=== PATIENT | female | born 1940 | race Caucasian/White ===

== ENCOUNTER 2016-08-25 13:19 | Inpatient (IN) | payer MEDICARE, BC ==
[~2016-08-25] VITALS: Ht 165.1 cm; Wt 81.0 kg
[~2016-08-25 13:19] MED LIST: ALEVE 220MG220 MG PO; ASPIRIN 81M81 MG/TA2 PO; CELEBREX 200MG200 MG PO; CLEOCIN HCL300 MG PO; COLACE 100100 MG/CAP PO; CRANBERRY FRUI405 MG PO; CYMBALTA 30MG30 MG PO; DIFLUCAN 100MG100 MG PO; DIFLUCAN200 MG PO; DOXYCYCLINE 10100 MG PO; FLEXERIL 1010 MG/TAB PO; HIPREX PO; K-TAB20 PO; LASIX 20MG TABL20 MG PO; LIORESAL 1010 MG/TAB PO; LIORESAL20 MG PO; LOPRESSOR 225 MG/TAB PO; NAPROSYN 2250 MG/TAB PO; NEURONTIN300 MG/CAP PO; NORCO 325 MG-51 TAB PO; OMNICEF 300MG300 MG PO; PROTONIX 40MG T40 MG PO; REQUIP0.25 MG PO; ROXICODONE 55 MG/TAB PO; TYLENOL 325MG325 MG PO; TYLENOL SU650 MG/SUP RC; UNKNOWN ABX; VITAMIN D32000 I1 PO; ZOFRAN ODT4 MG PO; [UNRECOGNIZED DRUG - OTHER] PO
[2016-08-25] MEDS ORDERED: BACTRIM DS 8001 TAB PO (13:25)
[2016-08-25] MEDS ORDERED: LIORESAL I500 MCG/ML (13:26)
[2016-08-25 14:12] LABS: BASO # 0.1 (0.0-0.2); BASO % 0.8 % (0.0-2.0); EOS # 0.1 (0.0-0.7); EOS % 1.3 % (0-4.0); GRAN # 4.9 (1.4-6.5); GRAN % 61.7 % (42.2-75.2); HEMATOCRIT 41.1 % (37.0-47.0); HEMOGLOBIN 13.3 g/dl (12.5-16.0); LYMPH # 2.4 (1.2-3.4); MEAN CELL VOLUME 94 fl (80.0-100.0); MEAN CORPUSCULAR HEMOGLOBIN 30 pg (27.0-31.0); MEAN CORPUSCULAR HGB CONC 32 g/dl (33.0-37.0); MEAN PLATELET VOLUME 10.2 fl (7.4-10.4); MONO # 0.4 (0.1-0.6); MONO % 4.9 % (1.7-9.3); PLATELET COUNT 291 K/mm3 (130-400); RED BLOOD COUNT 4.38 M/mm3 (4.10-5.30); WHITE BLOOD COUNT 7.9 K/mm3 (4.8-10.8)
[2016-08-25 14:18] LABS: ADJUSTED CALCIUM 8.6 mg/dL (8.4-10.2); BILIRUBIN,TOTAL 0.6 mg/dL (0.0-1.0); CALCIUM 8.6 mg/dL (8.4-10.2); CREATININE, serum 0.79 mg/dL (0.52-1.25); POTASSIUM 4.4 mmol/L (3.4-5.0); TOTAL PROTEIN 7.4 gm/dL (6.4-8.2)
[2016-08-25 16:52] VITALS: BP 137/62; PULSE 68; TEMP 97.9
[2016-08-25 19:51] VITALS: BP 132/65; PULSE 67
[2016-08-25 22:58] VITALS: BP 118/59; PULSE 70; TEMP 98.6
[2016-08-26 03:30] VITALS: BP 110/53; PULSE 70; TEMP 97.8
[2016-08-26 07:19] LABS: BASO # 0.1 (0.0-0.2); BASO % 0.8 % (0.0-2.0); EOS # 0.1 (0.0-0.7); EOS % 2.1 % (0-4.0); GRAN # 3.4 (1.4-6.5); GRAN % 54.8 % (42.2-75.2); HEMATOCRIT 37.8 % (37.0-47.0); HEMOGLOBIN 12.2 g/dl (12.5-16.0); LYMPH # 2.2 (1.2-3.4); LYMPH % 35.2 % (20.0-51.0); MEAN CELL VOLUME 95 fl (80.0-100.0); MEAN CORPUSCULAR HEMOGLOBIN 31 pg (27.0-31.0); MEAN CORPUSCULAR HGB CONC 32 g/dl (33.0-37.0); MEAN PLATELET VOLUME 10.5 fl (7.4-10.4); MONO # 0.4 (0.1-0.6); MONO % 6.6 % (1.7-9.3); PLATELET COUNT 271 K/mm3 (130-400); RED BLOOD COUNT 3.97 M/mm3 (4.10-5.30); REDCELL DISTRIBUTION WIDTH-CV 14.3 % (11.5-14.5); WHITE BLOOD COUNT 6.2 K/mm3 (4.8-10.8)
[2016-08-26 07:28] LABS: CALCIUM 7.7 mg/dL (8.4-10.2); CREATININE, serum 0.86 mg/dL (0.52-1.25); POTASSIUM 4.5 mmol/L (3.4-5.0)
[2016-08-26 07:46] VITALS: BP 123/57; PULSE 64; TEMP 97.5
[2016-08-26 11:36] VITALS: BP 131/64; PULSE 67; TEMP 97.4
[2016-08-26 15:13] VITALS: BP 127/65; PULSE 63; TEMP 97.4
[2016-08-26 20:11] VITALS: BP 115/50; PULSE 61; TEMP 98.5
[2016-08-26 23:26] VITALS: BP 120/54; PULSE 60; TEMP 97.8
[2016-08-27 07:57] VITALS: BP 128/58; PULSE 74; TEMP 97.4
[2016-08-27] MEDS ORDERED: ULTRAM 50MG TAB50 MG PO (10:17)
[2016-08-27] MEDS ORDERED: DOXYCYCLINE 10100 MG PO (10:17)
[2016-08-27 11:35] VITALS: BP 116/58; PULSE 78; TEMP 97.4
[2016-08-27 15:51] VITALS: BP 129/61; PULSE 68; TEMP 97.4
[2016-08-27 19:41] VITALS: BP 118/59; PULSE 71; TEMP 97.9
[2016-08-28 00:02] VITALS: BP 112/54; PULSE 73; TEMP 98
[2016-08-28 03:21] VITALS: BP 124/56; PULSE 67; TEMP 97.5
[2016-08-28 08:01] VITALS: BP 120/64; PULSE 67; TEMP 97.1
[2016-08-28] MEDS ORDERED: BACTRIM DS 8001 TAB PO (11:39)
[2016-08-28 12:18] VITALS: BP 158/108; PULSE 90; TEMP 98.3
== END 2016-08-28 14:25 | disposition home or self-care (01) | DRG 603 ==
LOC: COL.ER 13:19 → MEDICAL 16:11
PROVIDERS: Emergency Medicine; Family Medicine
DX: L03.115 Cellulitis of right lower limb (principal); G82.20 Paraplegia, unspecified; K21.9 Gastro-esophageal reflux disease without esophagitis; G25.81 Restless legs syndrome; T14.8 Other injury of unspecified body region; B95.62 Methicillin resistant Staphylococcus aureus infection as the cause of diseases classified elsewhere
CPT/HCPCS: OP; 99231-AI; 99232-AI; 99239; G0378; J1650; J2543; J3370; J7050

== ENCOUNTER 2016-10-07 20:30 | Emergency (ER) | payer MEDICARE, BC ==
[~2016-10-07] VITALS: Ht 165.1 cm; Wt 79.5 kg
[~2016-10-07 20:30] MED LIST changes: +BACTRIM DS 8001 TAB PO; +LIORESAL I500 MCG/ML; +ULTRAM 50MG TAB50 MG PO
[2016-10-07 20:32] VITALS: BP 145/70; TEMP 97.7
[2016-10-07] MEDS ORDERED: DITROPAN 5MG TAB5 MG (20:57)
[2016-10-07] MEDS ORDERED: SMZ/TMPDS PO (20:57)
[2016-10-07 21:17] LABS: BASO % 0.3 % (0.0-2.0); EOS % 0.6 % (0-4.0); GRAN # 5.2 (1.4-6.5); GRAN % 77.4 % (42.2-75.2); LYMPH # 1.1 (1.2-3.4); LYMPH % 16.7 % (20.0-51.0); MEAN CELL VOLUME 93 fl (80.0-100.0); MEAN CORPUSCULAR HGB CONC 33 g/dl (33.0-37.0); MEAN PLATELET VOLUME 9.5 fl (7.4-10.4); MONO # 0.3 (0.1-0.6); MONO % 4.4 % (1.7-9.3); PLATELET COUNT 214 K/mm3 (130-400); RED BLOOD COUNT 3.82 M/mm3 (4.10-5.30); REDCELL DISTRIBUTION WIDTH-CV 14.5 % (11.5-14.5); WHITE BLOOD COUNT 6.8 K/mm3 (4.8-10.8)
[2016-10-07 21:25] LABS: HEMATOCRIT 35.6 % (37.0-47.0); HEMOGLOBIN 11.8 g/dl (12.5-16.0); MEAN CORPUSCULAR HEMOGLOBIN 31 pg (27.0-31.0)
[2016-10-07 21:35] LABS: PH 7 (5-8); SQUAMOUS EPITHELIAL 0-2 /hpf; URINE APPEARANCE Clear; URINE BACTERIA None Seen /hpf; URINE BILIRUBIN Negative (NEGATIVE); URINE BLOOD Negative (NEGATIVE); URINE COLOR Yellow; URINE GLUCOSE Negative (NEGATIVE); URINE KETONE Negative (NEGATIVE); URINE UROBILINOGEN Negative (NEGATIVE)
[2016-10-07 21:47] LABS: ADJUSTED CALCIUM 8.9 mg/dL (8.4-10.2); ALANINE AMINOTRANSFERASE 42 U/L (9-52); ALBUMIN 3.5 gm/dL (3.5-5.0); ALKALINE PHOSPHATASE 58 U/L (50-136); ANION GAP 9 mmol/L (7-16); BILIRUBIN,TOTAL 0.4 mg/dL (0.0-1.0); BLOOD UREA NITROGEN 16 mg/dL (7-17); CALCIUM 8.5 mg/dL (8.4-10.2); CARBON DIOXIDE 24 mmol/L (22-30); CHLORIDE 102 mmol/L (98-107); GLUCOSE 127 mg/dL (74-106); LIPASE 56 U/L (23-300); POTASSIUM 4.2 mmol/L (3.4-5.0); SODIUM 136 mmol/L (137-145); TOTAL PROTEIN 6.2 gm/dL (6.4-8.2)
[2016-10-07 22:06] LABS: C-REACTIVE PROTEIN < 0.5 mg/dL (0.0-0.9); TROPONIN-I < 0.012 ng/mL (0.000-0.034)
[2016-10-07] MEDS ORDERED: ZOFRAN 4MG T4 MG/TAB PO (23:24)
[2016-10-07 23:35] VITALS: PULSE 64
== END 2016-10-07 23:35 | disposition home or self-care (01) ==
LOC: COL.ER 20:30
PROVIDERS: Emergency Medicine
DX: E86.0 Dehydration (principal); I48.91 Unspecified atrial fibrillation; Z90.49 Acquired absence of other specified parts of digestive tract; Z98.890 Other specified postprocedural states; Z79.82 Long term (current) use of aspirin
CPT/HCPCS: J2405; J7030

== ENCOUNTER 2016-10-09 01:54 | Observation (INO) | payer MEDICARE, BC ==
[~2016-10-09] VITALS: Ht 165.1 cm; Wt 94.4 kg
[~2016-10-09 01:54] MED LIST changes: +DITROPAN 5MG TAB5 MG; +SMZ/TMPDS PO; +ZOFRAN 4MG T4 MG/TAB PO
[2016-10-09 02:38] LABS: BASO % 0.3 % (0.0-2.0); EOS # 0.1 (0.0-0.7); EOS % 0.6 % (0-4.0); LYMPH # 1.7 (1.2-3.4); LYMPH % 18.1 % (20.0-51.0); MEAN CELL VOLUME 94 fl (80.0-100.0); MEAN CORPUSCULAR HGB CONC 33 g/dl (33.0-37.0); MEAN PLATELET VOLUME 9.6 fl (7.4-10.4); MONO # 0.4 (0.1-0.6); MONO % 4.2 % (1.7-9.3); PLATELET COUNT 221 K/mm3 (130-400); RED BLOOD COUNT 3.81 M/mm3 (4.10-5.30); REDCELL DISTRIBUTION WIDTH-CV 14.7 % (11.5-14.5); WHITE BLOOD COUNT 9.3 K/mm3 (4.8-10.8)
[2016-10-09 02:40] LABS: HEMATOCRIT 35.9 % (37.0-47.0); HEMOGLOBIN 11.9 g/dl (12.5-16.0); MEAN CORPUSCULAR HEMOGLOBIN 31 pg (27.0-31.0)
[2016-10-09 02:50] LABS: ALANINE AMINOTRANSFERASE 38 U/L (9-52); ALBUMIN 3.8 gm/dL (3.5-5.0); ALKALINE PHOSPHATASE 67 U/L (50-136); ANION GAP 9 mmol/L (7-16); BILIRUBIN,TOTAL 0.4 mg/dL (0.0-1.0); BLOOD UREA NITROGEN 16 mg/dL (7-17); CALCIUM 8.8 mg/dL (8.4-10.2); CARBON DIOXIDE 23 mmol/L (22-30); CHLORIDE 104 mmol/L (98-107); CREATININE, serum 0.88 mg/dL (0.52-1.25); GLUCOSE 102 mg/dL (74-106); LIPASE 102 U/L (23-300); SODIUM 136 mmol/L (137-145); TOTAL PROTEIN 6.5 gm/dL (6.4-8.2)
[2016-10-09 02:52] LABS: C-REACTIVE PROTEIN < 0.5 mg/dL (0.0-0.9)
[2016-10-09 03:04] LABS: TROPONIN-I < 0.012 ng/mL (0.000-0.034)
[2016-10-09] MEDS ORDERED: LIORESAL I500 MCG/ML (03:31)
[2016-10-09 03:33] LABS: PH 7 (5-8); SQUAMOUS EPITHELIAL 0-2 /hpf; URINE APPEARANCE Clear; URINE BACTERIA None Seen /hpf; URINE BILIRUBIN Negative (NEGATIVE); URINE BLOOD Negative (NEGATIVE); URINE COLOR Straw; URINE GLUCOSE Negative (NEGATIVE); URINE KETONE Negative (NEGATIVE); URINE RBC 0-2 /hpf; URINE UROBILINOGEN Negative (NEGATIVE); URINE WBC 0-2 /hpf
[2016-10-09 06:24] VITALS: BP 144/72; PULSE 50; TEMP 98.6
[2016-10-09 11:15] VITALS: BP 123/52; PULSE 61; TEMP 98.1
[2016-10-09 15:13] VITALS: BP 128/59; PULSE 60; TEMP 97.8
[2016-10-09 20:46] VITALS: BP 116/55; PULSE 76; TEMP 98.7
[2016-10-10] VITALS (8 sets, daily range): BP systolic 102–131; BP diastolic 50–82; PULSE 65–92; TEMP 98–98.4
[2016-10-10 07:17] LABS: BASO % 0.4 % (0.0-2.0); EOS # 0.1 (0.0-0.7); EOS % 0.6 % (0-4.0); GRAN # 5.6 (1.4-6.5); GRAN % 69.3 % (42.2-75.2); LYMPH # 1.9 (1.2-3.4); LYMPH % 23.9 % (20.0-51.0); MEAN CELL VOLUME 97 fl (80.0-100.0); MEAN CORPUSCULAR HGB CONC 32 g/dl (33.0-37.0); MEAN PLATELET VOLUME 9.6 fl (7.4-10.4); MONO # 0.4 (0.1-0.6); MONO % 5.3 % (1.7-9.3); PLATELET COUNT 206 K/mm3 (130-400); REDCELL DISTRIBUTION WIDTH-CV 15.1 % (11.5-14.5); WHITE BLOOD COUNT 8.1 K/mm3 (4.8-10.8)
[2016-10-10 07:21] LABS: HEMATOCRIT 34.9 % (37.0-47.0); HEMOGLOBIN 11.2 g/dl (12.5-16.0); MEAN CORPUSCULAR HEMOGLOBIN 31 pg (27.0-31.0)
[2016-10-10 07:39] LABS: CALCIUM 7.7 mg/dL (8.4-10.2); CREATININE, serum 0.78 mg/dL (0.52-1.25); POTASSIUM 4.2 mmol/L (3.4-5.0)
[2016-10-10] MEDS ORDERED: PRIL40 PO (13:00)
== END 2016-10-10 16:15 | disposition home health service (06) ==
LOC: COL.ER 01:54 → MEDICAL 04:47
PROVIDERS: Emergency Medicine; Nurse Practitioner Family
DX: K29.30 Chronic superficial gastritis without bleeding (principal); K25.9 Gastric ulcer, unspecified as acute or chronic, without hemorrhage or perforation; D64.9 Anemia, unspecified; Z86.14 Personal history of Methicillin resistant Staphylococcus aureus infection; K21.9 Gastro-esophageal reflux disease without esophagitis; G25.81 Restless legs syndrome; N31.9 Neuromuscular dysfunction of bladder, unspecified; Z87.440 Personal history of urinary (tract) infections; R35.0 Frequency of micturition; Z66 Do not resuscitate; G89.29 Other chronic pain; M54.9 Dorsalgia, unspecified; Z97.8 Presence of other specified devices; K29.60 Other gastritis without bleeding
CPT/HCPCS: C9113; G0378; J2250; J2405; J2550; J3010; J7030; J7040; Q9967

== ENCOUNTER → 2017-03-05 | Outpatient (CLI) | payer MEDICARE, BC ==
[~2017-03-05] MED LIST changes: +PRIL40 PO
== END ==
LOC: ZCOL.LAB 16:16
DX: Z01.812 Encounter for preprocedural laboratory examination (principal); Z86.14 Personal history of Methicillin resistant Staphylococcus aureus infection

== ENCOUNTER 2018-01-19 11:34 | Emergency (ER) | payer MEDICARE, BC ==
[~2018-01-19] VITALS: Ht 165.1 cm; Wt 81.8 kg
[2018-01-19 11:44] VITALS: TEMP 97.6
[2018-01-19 12:29] LABS: BASO # 0.1 (0.0-0.2); BASO % 0.6 % (0.0-2.0); EOS # 0.1 (0.0-0.7); EOS % 1.1 % (0-4.0); GRAN # 5.3 (1.4-6.5); GRAN % 66.8 % (42.2-75.2); HEMATOCRIT 38.1 % (37.0-47.0); HEMOGLOBIN 12.6 g/dl (12.5-16.0); LYMPH % 25.4 % (20.0-51.0); MEAN CELL VOLUME 98 fl (80.0-100.0); MEAN CORPUSCULAR HEMOGLOBIN 33 pg (27.0-31.0); MEAN CORPUSCULAR HGB CONC 33 g/dl (33.0-37.0); MEAN PLATELET VOLUME 9.9 fl (7.4-10.4); MONO # 0.5 (0.1-0.6); MONO % 5.8 % (1.7-9.3); PLATELET COUNT 236 K/mm3 (130-400); RED BLOOD COUNT 3.87 M/mm3 (4.10-5.30)
[2018-01-19 12:40] LABS: ALBUMIN 3.8 gm/dL (3.5-5.0); BILIRUBIN,TOTAL 0.4 mg/dL (0.0-1.0); CALCIUM 8.7 mg/dL (8.4-10.2); CREATININE, serum 0.93 mg/dL (0.52-1.25); POTASSIUM 4.8 mmol/L (3.4-5.0); TOTAL PROTEIN 6.6 gm/dL (6.4-8.2)
[2018-01-19 13:57] LABS: COLLECTION METHOD CLEAN CATCH
[2018-01-19 14:17] LABS: PH 7 (5-8); SQUAMOUS EPITHELIAL 0-2 /hpf; URINE APPEARANCE Clear; URINE BACTERIA Rare /hpf; URINE BILIRUBIN Negative (NEGATIVE); URINE BLOOD 3+ (NEGATIVE); URINE COLOR Straw; URINE GLUCOSE Negative (NEGATIVE); URINE KETONE Negative (NEGATIVE); URINE LEUKOCYTE ESTERASE 3+ (NEGATIVE); URINE NITRATE Negative (NEGATIVE); URINE PROTEIN(semi-quant) Negative (NEGATIVE); URINE UROBILINOGEN Negative (NEGATIVE)
[2018-01-19] MEDS ORDERED: AMOXICILLIN 8751 TAB PO (14:32)
[2018-01-19 14:49] VITALS: BP 156/90; PULSE 71
[2018-01-21] MEDS ORDERED: LEVAQUIN 5500 MG/TA1 PO (18:38)
== END 2018-01-19 15:04 | disposition home or self-care (01) ==
LOC: COL.ER 11:34
PROVIDERS: Family Medicine
DX: N39.0 Urinary tract infection, site not specified (principal); G89.29 Other chronic pain; M54.5 Low back pain; Z98.890 Other specified postprocedural states
CPT/HCPCS: A4216; J0696; J1170; J2550; J7040

== ENCOUNTER 2018-09-23 13:45 | Outpatient (RCR) | payer MEDICARE, BC ==
[~2018-09-23] VITALS: Ht 165.1 cm; Wt 76.0 kg
[~2018-09-23 13:45] MED LIST changes: +AMOXICILLIN 8751 TAB PO; +CARAFATE 1GM1 G PO; -CRANBERRY FRUI405 MG PO; +CRANBERRY FRUI425 MG PO; -DITROPAN 5MG TAB5 MG; +DITROPAN 5MG TAB5 MG PO; +LEVAQUIN 5500 MG/TA1 PO
[2018-09-23 14:01] VITALS: BP 127/61; PULSE 66; TEMP 98
--- NOTE | 2018-09-23 15:48 | NUR ---
Pt dimitri reclast well. Pt discharged per w/c by nurse with friend.
== END 2018-09-23 15:49 | disposition home or self-care (01) ==
LOC: EUO 13:45
DX: M81.0 Age-related osteoporosis without current pathological fracture (principal)
CPT/HCPCS: J3489

== ENCOUNTER 2019-09-29 14:09 | Outpatient (CLI) | payer MEDICARE, BC ==
[~2019-09-29] VITALS: Ht 165.1 cm; Wt 74.5 kg
[2019-09-29 14:37] VITALS: BP 142/74; PULSE 65; TEMP 98.3
== END 2019-09-29 15:15 | disposition home or self-care (01) ==
LOC: EUO 14:09
DX: M81.0 Age-related osteoporosis without current pathological fracture (principal)
CPT/HCPCS: J3489

== ENCOUNTER → 2020-04-14 | Outpatient (CLI) | payer MEDICARE, BC | LOC: ZCOL.LAB 23:48 | DX: Z22.322 Carrier or suspected carrier of Methicillin resistant Staphylococcus aureus (principal) ==

== ENCOUNTER → 2020-04-27 | Outpatient (CLI) | payer MEDICARE, BC | LOC: ZCOL.LAB 14:37 | DX: Z01.89 Encounter for other specified special examinations (principal) ==

== ENCOUNTER 2020-09-29 15:04 | Outpatient (CLI) | payer MEDICARE, BC ==
[2020-09-29] MEDS ORDERED: VITAMIN C500 MG PO (15:26)
--- NOTE | 2020-09-29 16:23 | NUR ---
IV DC'D. PT WHEELED OUT FOR DISCHARGE. PT'S WALKER PICKED UP FROM ADMISSIONS.
== END 2020-09-29 16:27 | disposition home or self-care (01) ==
LOC: EUO 15:04
DX: M81.0 Age-related osteoporosis without current pathological fracture (principal)
CPT/HCPCS: J3489